=== PATIENT | male | born 1990 | race Caucasian/White ===

== ENCOUNTER 2016-08-13 20:32 | Emergency (ER) | payer SELFPAY ==
[~2016-08-13 20:32] MED LIST: BENADRYL ALLERG25 M2 PO; EPIPEN 2-PAK1 MG/ML; FLEXERIL 1010 MG/TAB PO; MELATONIN10 M2 PO
[2016-08-13] MEDS ORDERED: NORCO 325 MG-51 TAB PO (20:57)
== END 2016-08-13 21:12 | disposition home or self-care (01) ==
LOC: ED 20:32
DX: M25.512 Pain in left shoulder (principal)
CPT/HCPCS: A4565; J1885

== ENCOUNTER 2017-01-28 10:00 | Emergency (ER) | payer SELFPAY ==
[~2017-01-28] VITALS: Ht 193 cm; Wt 101.4 kg
[~2017-01-28 10:00] MED LIST changes: +NORCO 325 MG-51 TAB PO
[2017-01-28] MEDS ORDERED: TYLENOL 500MG500 MG PO (10:39)
[2017-01-28] MEDS ORDERED: ADVIL 200MG TA200 MG PO (10:39)
[2017-01-28] MEDS ORDERED: AUGMENTIN 875-1 EAC1 PO (11:36)
[2017-01-28] MEDS ORDERED: NAPROSYN500 M1 PO (11:37)
[2017-01-28 11:41] VITALS: BP 150/107
== END 2017-01-28 11:45 | disposition home or self-care (01) ==
LOC: ED 10:00
DX: S61.451A Open bite of right hand, initial encounter (principal); W54.0XXA Bitten by dog, initial encounter; Y92.009 Unspecified place in unspecified non-institutional (private) residence as the place of occurrence of the external cause

== ENCOUNTER 2017-02-03 22:48 | Emergency (ER) | payer SELFPAY ==
[~2017-02-03] VITALS: Ht 193 cm; Wt 60.0 kg
[~2017-02-03 22:48] MED LIST changes: +ADVIL 200MG TA200 MG PO; +AUGMENTIN 875-1 EAC1 PO; +NAPROSYN500 M1 PO; +TYLENOL 500MG500 MG PO
== END 2017-02-03 23:22 | disposition home or self-care (01) ==
LOC: ED 22:48
DX: S61.451D Open bite of right hand, subsequent encounter (principal); W54.0XXD Bitten by dog, subsequent encounter

== ENCOUNTER 2017-08-17 12:34 | Emergency (ER) | payer SELFPAY ==
[~2017-08-17] VITALS: Ht 193 cm; Wt 113.6 kg
[2017-08-17 13:39] LABS: EOS # 0.2 (0.04-0.40); EOS % 2.2 % (0.0-4.0); HEMOGLOBIN 17.3 g/dL (13.5-18.0); LYMPH# 1.5 (1.50-4.00); MEAN CELL VOLUME 90 fl (78-100); MEAN CORPUSCULAR HEMOGLOBIN 31 pg (27-31); MEAN CORPUSCULAR HGB CONC 35 g/dL (33-37); MEAN PLATELET VOLUME 9.1 fl (7.4-10.4); MONO # 0.9 (0.20-0.80); NEU # 7.9 (1.40-6.50); PLATELET COUNT 267 K/mm3 (130-400); RED BLOOD COUNT 5.54 M/mm3 (4.20-5.60); WHITE BLOOD COUNT 10.5 K/mm3 (4.8-10.8)
[2017-08-17 13:56] LABS: ALBUMIN 4.8 g/dL (3.5-5.0); BUN/CREATININE RATIO 16.1 (6.0-26.0); CALCIUM 9.5 mg/dL (8.4-10.2); POTASSIUM 4.5 mmol/L (3.6-5.0); TOTAL BILIRUBIN 0.4 mg/dL (0.2-1.3); TOTAL PROTEIN 8.4 g/dL (6.3-8.2)
[2017-08-17 14:24] LABS: URINE APPEARANCE CLEAR; URINE BILIRUBIN NEGATIVE (NEGATIVE); URINE BLOOD NEGATIVE (NEGATIVE); URINE COLOR YELLOW; URINE GLUCOSE NEGATIVE (NEGATIVE); URINE KETONE NEGATIVE (NEGATIVE); URINE LEUKOCYTE ESTERASE NEGATIVE (NEGATIVE); URINE NITRATE NEGATIVE (NEGATIVE); URINE PROTEIN(semi-quant) TRACE mg/dL (NEGATIVE); URINE UROBILINOGEN NORMAL (NORMAL); URINE WBC 0-1 /hpf (0-3)
[2017-08-17] MEDS ORDERED: NORCO 325 MG-51 TA1 PO (15:10)
[2017-08-17] MEDS ORDERED: CEPHALEXIN500 M2 PO (15:10)
[2017-08-17 15:21] VITALS: BP 125/81
== END 2017-08-17 15:22 | disposition home or self-care (01) ==
LOC: ED 12:34
PROVIDERS: Physician Assistant
DX: R51 Headache (principal); K08.89 Other specified disorders of teeth and supporting structures; R07.89 Other chest pain; Z91.81 History of falling; F17.210 Nicotine dependence, cigarettes, uncomplicated